=== PATIENT | male | born 1945 | race Caucasian/White ===

== ENCOUNTER 2017-02-03 07:45 | Outpatient (CLI) | payer MEDICARE ==
[~2017-02-03] VITALS: Ht 177.8 cm; Wt 91.4 kg
--- NOTE | ~2017-02-03 | HEMODYNAMI ---
PATIENT:ERICA LOPEZ MEDICAL RECORD: [id number] : 49 LOCATION:[facility] ADMISSION DATE: 02/03/17 Generatedon:02/03/201710:00 Patient name: ERICA LOPEZ Patient #: [id number] SSN: : 1945 Date of study: 02/03/2017 Page: Of Hemodynamic Procedure Report Patient Data Patient Demographics Procedure consent was obtained First Name: ERICA Gender: Male Last Name: JOHN : 1945 Middle Initial: A Age: 72 year(s) Patient #: [id number] Race: Unknown Additional ID: [id number] Contact details Address: [address] [place] [address] State: [place] City: [facility] Zip code: [address] Past Medical History Allergies Allergen Reaction Date Comments Reported Other allergy 02/03/2017 STATINS Admission Admission Data Admission Date: 02/03/2017 Admission Time: 7:45 Height (in.): 5.11 BSA: 0.32 (m2) Height (cm.): 12.98 BMI: 5546.56 (kg/m2) Weight (lbs.): 206 Weight (kg.): 93.44 Lab Results Lab Result Date: 02/03/2017 Lab Result Time: 0:00 Biochemistry Name Units Result Min Max BUN mg/dl 22 --(----)-* 7 18 Creatinine mg/dl 1 --(--*-)-- 0.6 1.3 CBC Name Units Result Min Max Hemoglobin g/dl 14.1 --(*---)-- 13.5 17.5 Procedure Procedure Types Cath Procedure Diagnostic Procedure [facility] w/Coronaries FFR/IVUS Intra-Coronary IVUS Initial PCI Procedure Coronary Stent Coronary Stent Initial PTCA PTCA Initial Miscellaneous Procedures Moderate Sedation up to 30 minutes Procedure Description Procedure Date Procedure Date: 02/03/2017 Procedure Start Time: 9:36 Procedure End Time: 10:00 Procedure Staff Name Function Chandan Ramon MD Performing Physician Noreen Agosto RT Monitor Sandee Orozco RT Scrub Chris Ac RN Nurse Procedure Data Cath Procedure Fluoroscopy Diagnostic fluoroscopy Total fluoroscopy Time: 6.5 time: 6.5 min min Diagnostic fluoroscopy Total fluoroscopy dose: dose: 1070 mGy 1070 mGy Contrast Material Contrast Material Type Amount (ml) Isovue 300 147 Entry Location Entry Primary Successful Side Size Upsize Upsize Entry Closure Succes sful Closure Location (Fr) 1 (Fr) 2 (Fr) Remarks Device Remarks Femoral Right 5 Fr 6 Fr Exoseal artery Short Estimated blood loss: 10 ml Diagnostic catheters Device Type Used For End Catheter Placement MULTIPACK Pigtail 5 Fr Procedure catheter MULTIPACK JL 4.0 5Fr Procedure catheter MULTIPACK 3DRC 5Fr Procedure catheter Procedure Complications No complications Procedure Medications Medication Administration Route Dosage 0.9% NaCl I.V. 100 ml/hr Oxygen NC 2 l/min Lidocaine 2% added to field 20 Heparin Flush Bag added to field 2 bags (1000units/500ml NS) Versed I.V. 1 mg Fentanyl I.V. 50 mcg Versed I.V. 1 mg Fentanyl I.V. 50 mcg Heparin Bolus I.V. 4000 units Plavix P.O. 75 mg Hemodynamics Rest BSA: 0.32 (m2) HGB: 14.1 (g/dl) O2 Consumption: Estimated: 36.93 (ml/min) O2 Con sumption indexed: Estimated:115.41 (ml/min/m) Heart Rate: 69 (bpm) Snapshots Pre Cath Intra NCS Post Cath Vital Signs Time Heart Resp SPO2 etCO2 NIBP (mmHg) Rhythm Pain Sedation Rate (ipm) (%) (mmHg) Status Level (bpm) 9:12:10 72 16 96 0 141/76(113) NSR 0 (11) 10(A) , No pain 9:16:53 67 14 100 33.9 147/92(123) NSR 0 (11) 10(A) , No pain 9:21:31 72 16 99 0 139/92(128) NSR 0 (11) 10(A) , No pain 9:26:14 74 13 96 33.2 144/88(118) NSR 0 (11) 10(A) , No pain 9:30:59 75 15 97 24.1 139/82(110) NSR 0 (11) 10(A) , No pain 9:35:41 77 13 97 33.9 141/80(122) NSR 0 (11) 9(A) , No pain 9:40:26 80 15 98 34.7 145/80(118) NSR 0 (11) 9(A) , No pain 9:45:11 79 14 98 34 145/80(119) NSR 0 (11) 9(A) , No pain 9:49:53 79 16 98 24.9 146/91(117) NSR 0 (11) 9(A) , No pain 9:54:38 77 16 98 33.9 146/80(126) NSR 0 (11) 10(A) , No pain 9:59:23 73 13 98 33.1 147/90(122) NSR 0 (11) 9(A) , No pain Medications Time Medication Route Dose Verified Delivered Reason Notes Effectiveness by by 9:18:38 0.9% NaCl I.V. 100 Chris Chris Per physician ml/hr Osorio Ac RN, RN 9:18:53 Oxygen NC 2 Chris Chris Per physician l/min Osorio Ac RN RN 9:19:15 Lidocaine 2% added 20ml Chris Chris for local to vial Lorigan Osorio anesthetic RN RN 9:19:44 Heparin Flush added 2 Chris Chris used for Bag to bags Osorio Ac procedure (1000units/500ml RN RN NS) 9:32:03 Versed I.V. 1 mg Chris Chris for sedation Osorio Ac RN RN 9:32:17 Fentanyl I.V. 50 Chris Chris for sedation mcg Osorio Ac RN RN 9:36:49 Versed I.V. 1 mg Chris Chris for sedation Osorio Ac RN RN 9:36:58 Fentanyl I.V. 50 Chris Chris for sedation mcg Osorio Ac RN RN 9:42:19 Heparin Bolus I.V. 4000 Chris Chris for units Osorio Ac anticoagulation RN RN 9:54:53 Plavix P.O. 75 mg Chris Chris for Osorio Ac antiplatelet RN RN therapy Procedure Log Time Note 9:05:17 Chris Ac RN sent for patient. Start room use. 9:05:18 Time tracking: Regular hours 9:05:22 Plan of Care:Hemodynamics will remain stable., Cardiac rhythm will remain stable., Comfort level will be maintained., Respiratory function will remain adequate., Patient/ family verbilizes understanding of procedure., Procedure tolerated without complication., Recovers from procedure without complications.. 9:05:58 H&P Date Dictated: 01/16/2017 Within 30 days and on chart., H&P Addendum completed by physician on day of procedure. (MUST COMPLETE FOR ALL OUTPATIENTS). 9:06:07 Patient Height : 5.11 inches 9:06:14 Patient Weight : 206 lbs 9:08:51 Patient received from Pre/Post Procedure Room to CCL 1 Alert and oriented. Tansferred to table in Supine position. 9:08:52 Warm blankets applied, and letty hugger turned on for patient comfort. 9:08:53 Correct patient and procedure confirmed by team. 9:08:54 Signed procedure consent form obtained from patient. 9:08:55 ECG and BP/O2 sat monitors applied to patient. 9:11:13 Vital chart was started 9:11:59 Pre-procedure instructions explained to patient. 9:12:00 Pre-op teaching completed and patient verbalized understanding. 9:12:02 Family in patients room. 9:12:04 Patient NPO since Midnight. 9:12:16 Patient allergic to Other allergySTATINS 9:12:19 Is the patient allergic to Iodine/contrast media? No. 9:12:21 Is patient on blood thinner?Yes 9:12:23 ACC The patient was administered the following blood thiners within the last 24 hours: ACCPlavix 9:12:28 Patient diabetic? No. 9:12:33 Previous problem with sedation/anesthesia? No ? 9:12:35 Snore? Yes 9:12:36 Sleep apnea? Yes 9:12:38 Deviated septum? No 9:12:38 Opens mouth fully? Yes 9:12:39 Sticks out tongue? Yes 9:12:45 Airway obstruction? No ? 9:12:49 Dentures? No ? 9:12:55 Baseline sample Acquired. 9:13:00 Rhythm: sinus rhythm 9:13:02 Full Disclosure recording started 9:13:25 Pre procedure: right dorsailis pedis pulse 1+ Palpable, but thready & weak; easily obliterated 9:13:41 IV patent on arrival in right hand with 0.9% NaCl at [facility]. 9:15:34 Lab Result : Creatinine 1 mg/dl 9::34 Lab Result : BUN 22 mg/dl 9:15:34 Lab Result : Hemoglobin 14.1 g/dl 9:15:38 Lab results completed and on chart. 9:15:40 Right groin area was prepped with chlora-prep and draped in sterile fashion 9:18:38 0.9% NaCl 100 ml/hr I.V. was administered by Chris Ac RN; Per physician; 9:18:53 Oxygen 2 l/min NC was administered by Chris Ac RN; Per physician; 9:19:15 Lidocaine 2% 20ml vial added to field was administered by Chris Ac RN; for local anesthetic; 9:19:44 Heparin Flush Bag (1000units/500ml NS) 2 bags added to field was administered by Chris Ac RN; used for procedure; 9:20:21 Physician paged 9:30:17 Use device set Femoral Dx 9:30:20 ACIST Syringe (85939) opened to sterile field. 9:30:21 Bag Decanter (2002S) opened to sterile field. 9:30:23 Tegaderm 4 x 4 (1626W) opened to sterile field. 9:30:24 ACIST Manifold (81999) opened to sterile field. 9:30:24 ACIST Hand Control (75105) opened to sterile field. 9:30:26 Medline Cath Pack ([id number]) opened to sterile field. 9:30:27 SHEATH 5FR [place] (HAM060) opened to sterile field. 9:30:28 DIAGNOSTIC WIRE .035 260cm J wire (735909) opened to sterile field. 9:30:31 DIAGNOSTIC Multipack 5Fr catheter set ([id number]) opened to sterile field. 9:30:58 Physician arrived 9:31:00 --------ALL STOP TIME OUT------ 9:31:01 Final Timeout: patient, procedure, and site verified with staff and physician. All members of the team are in agreement. 9:31:03 Right groin site verified by team. 9:31:09 Physical assessment completed. ASA score P 2 - A patient with mild systemic disease as per Chandan Ramon MD. 9:31:13 Sedation plan: IV Moderate Sedation Medication:Versed, Fentanyl 9:32:03 Versed 1 mg I.V. was administered by Chris Ac RN; for sedation; 9:32:17 Fentanyl 50 mcg I.V. was administered by Chris Ac RN; for sedation; 9:35:50 Zero performed for pressure channel P1 9:36:07 Procedure started. 9:36:14 Local anesthetic to right femoral artery with Lidocaine 2% by Chandan Ramon MD.INITIAL ACCESS ONLY 9:36:30 A 5 Fr sheath was inserted into the Right Femoral artery 9:36:49 Versed 1 mg I.V. was administered by Chris Ac RN; for sedation; 9:36:52 A MULTIPACK Pigtail 5 Fr catheter was advanced over the wire and used for Procedure. 9:36:55 LV hemodynamics recorded. 9:36:57 Injector settings: Ml/sec: 10, Volume: 20, 9:36:58 Fentanyl 50 mcg I.V. was administered by Chris Ac RN; for sedation; 9:37:01 LV gram done using NIÑO 9:37:26 EF : 50 % 9:37:28 Catheter removed. 9:37:43 A MULTIPACK JL 4.0 5Fr catheter was advanced over the wire and used for Procedure. 9:38:23 LCA angiography performed. 9:39:08 Catheter removed. 9:39:13 A MULTIPACK 3DRC 5Fr catheter was advanced over the wire and used for Procedure. 9:40:16 Catheter removed. 9:40:25 SHEATH 6FR [place] (TSP490) opened to sterile field. 9:40:35 INFLATOR Merit BasixCompak (AB5778) opened to sterile field. 9:40:52 Sheath upsized to a 6 Fr Short. 9:41:42 [place] IVUS Catheter (00661N) opened to sterile field. 9:42:03 GUIDE 6FR XBLAD 4.0 catheter ([id number]) opened to sterile field. 9:42:16 CHOICE PT Extra Support 182cm wire ([id number]) opened to sterile field. 9:42:19 Heparin Bolus 4000 units I.V. was administered by Chris Ac RN; for anticoagulation; 9:42:28 6 Fr XBLAD4 guide catheter was inserted over the wire 9:42:33 CHOICE ES wire advanced. 9:43:08 Wire advanced across lesion. 9:43:37 IVUS catheter advanced over wire. 9:44:23 IVUS pass to LAD lesion performed. 9:45:48 IVUS catheter removed over wire. 9:48:02 Inflation Number: 1 A JENNIFER RX 3.0 x 34 stent ([id number]) was prepped and advanced across the Mid LAD. The stent was deployed at 11 DARION for 0:10 (min:sec). 9:48:20 Inflation number: 2 The stent balloon was then re-inflated across the Mid LAD to 21 DARION for 0:00 (min:sec). 9:48:50 Stent catheter was removed intact over wire. 9:50:18 Inflation number: 3 A EUPHORA 3.5 x 15 Balloon ([id number]) was prepped and advanced across the Mid LAD, then inflated to 17 DARION for 0:00 (min:sec). 9:50:41 Inflation number: 4 The EUPHORA 3.5 x 15 Balloon ([id number]) was reinflated across the Mid LAD, to 21 DARION for 0:00 (min:sec). 9:51:26 Wire redirected to CIRC. 9:52:04 Inflation number: 1 The EUPHORA 3.5 x 15 Balloon ([id number]) was reinflated across the Mid CX, to 13 DARION for 0:10 (min:sec). 9:52:36 Inflation number: 2 The EUPHORA 3.5 x 15 Balloon ([id number]) was reinflated across the Mid CX, to 17 DARION for 0:00 (min:sec). 9:53:16 Balloon removed over the wire. 9:53:17 Wire removed. 9:53:17 Guide catheter removed. 9:53:38 EXOSEAL 6Fr (EX600) opened to sterile field. 9:53:56 Sheath removed intact; hemostasis achieved with Exoseal to the Right Femoral artery. 9:54:00 Procedure ended.(Physican Out) 9:54:03 Fluoroscopy time 06.50 minutes. 9:54:07 Fluoroscopy dose: 1070 mGy 9:54:07 Flurop Dose total: 1070 9:54:11 Contrast amount:Isovue 300 147ml. 9:54:12 Sharps counted by scrub and verified by R.N. 9:54:39 Insertion/operative site no bleeding no hematoma. 9:54:46 Post-op/insertion site Right Femoral artery dressed using a 4 x 4 and Tegaderm. 9:54:53 Plavix 75 mg P.O. was administered by Chris Ac RN; for antiplatelet therapy; 9:55:03 Post procedure: right dorsailis pedis pulse 2+ Normal; easily identifiable; not easily obliterated. 9:55:06 Post-procedure physical assessment completed. ASA score P 2 - A patient with mild systemic disease as per Chandan Ramon MD. 9:55:10 Post procedure rhythm: unchanged. 9:55:11 Estimated blood loss: 10 ml 9:55:13 Post procedure instruction explained to patient.Patient verbalizes understanding. 9:55:14 Patient needs reinforcement of post procedure teaching. 9:55:50 Procedure type changed to Cath procedure, Diagnostic procedure, LHC, LHC w/Coronaries, FFR/IVUS, Intra-Coronary IVUS Initial, PCI procedure, Coronary Stent, Coronary Stent Initial, PTCA, PTCA Initial, Miscellaneous Procedures, Moderate Sedation up to 30 minutes 9:56:47 Procedure and supply charges have been captured, reviewed, submitted and are correct. 9:56:49 Procedure Complication : No complications 10:00:14 Vital chart was stopped 10:00:14 See physician's report for complete and final results. 10:00:18 Report given to Pre/Post Procedure Room. 10:00:21 Patient transfered to Pre/Post Procedure Room with Bed. 10:00:24 Procedure ended. 10:00:24 Full Disclosure recording stopped 10:00:28 End room use (Document Last) Intervention Summary Intervention Notes Time ActionType Lesion and Equipment Used Action# Pressure Duration Attributes 9:48:02 Place stent Mid LAD JENNIFER RX 3.0 x 1 11 00:10 34 stent ([id number]) 9:48:20 Reinflate Mid LAD JENNIFER RX 3.0 x 2 21 00:00 stent 34 stent balloon ([id number]) 9:50:18 Inflate Mid LAD EUPHORA 3.5 x 3 17 00:00 balloon 15 Balloon ([id number]) 9:50:41 Reinflate Mid LAD EUPHORA 3.5 x 4 21 00:00 balloon 15 Balloon ([id number]) 9:52:04 Reinflate Mid CX EUPHORA 3.5 x 1 13 00:10 balloon 15 Balloon ([id number]) 9:52:36 Reinflate Mid CX EUPHORA 3.5 x 2 17 00:00 balloon 15 Balloon ([id number]) Device Usage Item Name Manufacture Quantity Catalog Number Hospital Part Current M inimal Lot# / Charge Number Stock Stock Serial# Code ACIST Syringe Acist 1 94797 875154 314695 430472 2 0 (86080) Medical Systems Inc Bag Decanter Microtek 1 2001S 258853 58053 719655 5 (2001S) Medical Inc. Tegaderm 4 x 4 3M 1 1626W 332260 753255 999388 5 (1626W) ACIST Manifold Acist 1 34239 655607 545439 889662 5 (19882) Medical Systems Inc ACIST Hand Acist 1 89585 263755 360879 728544 5 Control Medical (78197) Systems Inc Medline Cath Cardinal 1 [id number] 386624 99791 604742 5 Pack Health ([id number]) SHEATH 5FR Terumo 1 ICR590 863127 052418 704705 4 0 [place] (ZDT232) DIAGNOSTIC [facility] [place] 1 772091 695468 698759 623225 3 0 WIRE .035 260cm J wire (099696) DIAGNOSTIC Cardinal 1 YG1261 995387 52994 224159 3 0 Multipack 5Fr Health catheter set (NE6483) MULTIPACK Cardinal 1 366272 5 Pigtail 5 Fr Health catheter MULTIPACK JL Cardinal 1 158311 5 4.0 5Fr Health catheter MULTIPACK 3DRC Cardinal 1 618514 5 5Fr catheter Health SHEATH 6FR Terumo 1 NWW763 779129 717229 618884 4 0 [place] (NVL062) INFLATOR Merit Merit 1 OG4918 975641 112405 239983 1 5 [employer] (KG5127) [place] 1 53811E 560564 336148 110393 8 [place] IVUS Catheter (85999K) GUIDE 6FR Cardinal 1 [id number] 655257 091706 312714 3 XBLAD 4.0 Health catheter ([id number]) CHOICE PT Aiken 1 [id number] 777836 312602 085812 5 Extra Support Scientific 182cm wire ([id number]) JENNIFER RX 3.0 x Medtronic 1 [id number] 560965 2575060 757118 5 [id number] 34 stent ([id number]) EUPHORA 3.5 x Medtronic 1 [id number] 218640 443697 212413 5 [id number] 15 Balloon ([id number]) EXOSEAL 6Fr Cardinal 1 EX600 939192 297184 934204 1 0 (EX600) Health Signature Audit Trinity Stage Time Signature Unsigned Intra-Procedure 02/03/2017 Sandee Orozco 10:00:50 AM RT(R) Signatures Monitor : Noreen Signature : Counts RT Date : Time : [id number] [place] [address]
[2017-02-03] MEDS ORDERED: CELEXA20 MG PO (08:02)
[2017-02-03] MEDS ORDERED: PLAVIX75 MG PO (08:02)
[2017-02-03] MEDS ORDERED: PRAVACHOL40 MG PO (08:03)
[2017-02-03] MEDS ORDERED: BAYER CHEWABLE81 MG PO (08:03)
[2017-02-03] MEDS ORDERED: PROTONIX40 MG PO (08:03)
[2017-02-03 08:20] VITALS: BP 134/73; Ht 177.8 cm; Wt 91.4 kg
[2017-02-03 08:36] LABS: BASOPHILS 0.6 % (0-2); EOSINOPHILS 4.6 % (0-7); HEMATOCRIT 42.2 % (42.0-54.0); HEMOGLOBIN 14.1 g/dL (13.5-17.5); IMMATURE GRANULOCYTES 0.2 % (0-5); LYMPHOCYTES 25.2 % (15-50); MCHC 33.4 g/dL (31.0-37.0); MCV 95.9 fL (80.0-100.0); MEAN PLATELET VOLUME 10.7 fL (7.4-10.4); MONOCYTES 6.6 % (2-11); NEUTROPHILS 62.8 % (40-80); PLATELET COUNT 171 10x3/uL (130-400); RDW 12.8 % (11.5-14.5); WBC 5.3 10x3/uL (4.8-10.8)
[2017-02-03 08:47] LABS: CALC OSMOLALITY 282 mosm/kg (275-300); CALCIUM 9.1 mg/dL (8.5-10.1); CARBON DIOXIDE 27.6 mmol/L (21.0-32.0); CHLORIDE - SERUM 105 mmol/L (98-107); GLUCOSE 123 mg/dL (74-106); POTASSIUM - SERUM 4.4 mmol/L (3.5-5.1); SODIUM 140 mmol/L (136-145); UREA NITROGEN 22 mg/dL (7-18); eGFR NON AFRICAN AMERICAN 78 mL/min (90-120)
--- NOTE | 2017-02-03 10:15 | NUR ---
LYING FLAT. SPOUSE AT BEDSIDE. SLEEPING AROUSES TO STIMULI. O2 @ 2L NC WHILE SLEEPING. SINUS RYTHM 72bpm ON TELEMETRY. BP-132/78. PULSES +2 BILATERALLY. RT GROIN CLEAN DRY INTACT. FREE FROM BLEEDING. FREE FROM HEMATOMA. BED LOCKED AND LOW. CALL LIGHT IN REACH.
--- NOTE | 2017-02-03 11:10 | NUR ---
SLEEPING IN BED. AROUSES TO STIMULI. SPOUSE AT BEDSIDE. SINUS 69bpm ON TELEMETRY. 2L NC WHILE SLEEPING. RT GROIN CDI. FREE FROM HEMATOMA. FREE FROM BLEEDING. PULSES PALPABLE +2 BILATERALLY. DENIES ANY NEEDS. BED LOCKED AND LOW. CALL LIGHT IN REACH. TWO SIDERAIL UP.
--- NOTE | 2017-02-03 12:10 | NUR ---
ALERT AND ORIENTED X4. LAYING FLAT IN BED. TRYING TO LIFT UP HEAD. DISCUSS FURTHER THE IMPORTANCE TO REMAIN FLAT WITH PATIENT AND FAMILY. O2 @ 98% RA. SINUS 71bpm ON TELEMETRY. PULSES PALPABLE +2 BILATERALLY. DENIES ANY NEEDS. CONTINUE PLAN OF CARE AND SAFETY PRECAUTIONS. FREE FROM BLEEDING. FREE FROM HEMATOMA.
--- NOTE | 2017-02-03 13:10 | NUR ---
ALERT AND ORIENTED X4. RESTING IN BED. ELEVATED HOB 30 DEGREES. MONITOR RT GROIN FOR BLEEDING. FAMILY AT BEDSIDE. TOLERATING MEAL. DENIES SOB OR CHEST PAIN. O2-95% RA. SINUS 83bpm ON TELEMETRY. FREE FROM BLEEDING. FREE FROM HEMATOMA. PULSES PALPABLE +2 BILATERALLY. CONTINUE PLAN OF CARE AND SAFETY PRECAUTIONS.
--- NOTE | 2017-02-03 14:00 | NUR ---
ALERT AND ORIENTED X4. AMBULATE TO RESTROOM. GAIT STEADY. RT GROIN CDI. FREE FROM BLEEDING. FREE FROM HEMATOMA. DISCHARGE INSTRUCTIONS GIVEN VERBALLY AND WRITTEN WITH PATIENT AND FAMILY. DC RT HAND IV TIP INTACT. ESCORT TO RIDE VIA WHEELCHAIR BY CANVASS MANAGER TEAM.
--- NOTE | 2017-02-12 15:46 | OP ---
PATIENT NAME: ERICA LOPEZ MEDICAL RECORD: [id number] :49 LOCATION:D.CAT ADMISSION DATE: SURGEON: JAYLEN BANDA MD DATE OF OPERATION: 02/03/2017 PROCEDURES: 1. PTCA stent LAD. 2. PTCA left circumflex. 3. Intravascular ultrasound of LAD. 4. Left heart catheterization. 5. Selective coronary angiography. 6. Left ventriculogram. INDICATION: Angina and coronary artery disease. PROCEDURE IN DETAIL: After informed consent was obtained and after detailed explanation of risks, benefits as well as alternative therapies, the patient elected to proceed with angiogram and angioplasty. The right femoral area was prepped and draped in normal sterile fashion. The right femoral artery was cannulated via modified Seldinger technique with placement of 6-Spanish sheath. All catheters exchanged through this sheath. FINDINGS: The left ventriculogram was performed in standard 30-degree NIÑO view, reveals good cardiac wall motion throughout all segments. Overall ejection fraction estimated at 50%. SELECTIVE CORONARY ANGIOGRAPHY: 1. Left main showed no significant angiographic disease. 2. Left anterior descending has previously placed stents. Intravascular ultrasound reveals there are multiple areas of 80% in-stent restenosis. 3. Left circumflex has an 70% to 80% in-stent restenosis in the mid vessel. 4. Right coronary has moderate irregularities, but no discrete flow-limiting stenosis. PTCA STENT OF THE LAD: The stent used is a 3.0 x 34 mm Mcclure post-stent dilatation made with a 3.5 balloon. Result was 0% residual stenosis. PTCA OF THE LEFT CIRCUMFLEX: The 3.5 balloon was used for the in-stent restenosis, circumflex up to 17 atmospheres. Result was 0% residual throughout. OVERALL IMPRESSION: Successful percutaneous transluminal coronary angioplasty stent of the left anterior descending and successful PTCA of the left circumflex, both going from 70% to 80% initial stenosis to 0% residual stenosis. TRANSINT:[id number] Voice Confirmation ID: [id number] DOCUMENT ID: [id number] JAYLEN BANDA MD at 1546 CC: [id number] DICTATION DATE: 02/03/17 0958 HEEL PADDER: 02/03/17 1019 DEP CLI 02/03/17 [place] [address]
== END 2017-02-03 14:05 | disposition home or self-care (01) ==
LOC: D.CATH 07:45
PROVIDERS: Internal Medicine Interventional Cardiology
DX: I25.119 Atherosclerotic heart disease of native coronary artery with unspecified angina pectoris (principal); E78.5 Hyperlipidemia, unspecified; Z01.812 Encounter for preprocedural laboratory examination
CPT/HCPCS: 92920; 93458; 92978; C9600